=== PATIENT | male | born 1965 | race Caucasian/White ===

== ENCOUNTER 2016-10-27 16:36 | Emergency (ER) | payer OTHER ==
--- NOTE | 2016-10-27 17:08 | ED CLINICAL REPORT ---
Clinical Report - Physicians/Mid Levels [facility] [address] [place] [address] 10/27/2016 16:38 Patient: SARAHI SÁNCHEZ SR Time Seen: 16:53. Arrived- By private vehicle. Historian- patient. HISTORY OF PRESENT ILLNESS Chief Complaint: SKIN RASH. This started about 5 weeks ago and is still present. It was gradual in onset and has been waxing/waning. It is described as itchy, mildly painful and burning. It has been located on the right hand and left hand. A possible cause has been identified (Pt thinks the dry, cracked skin could be due to his use of Round Up herbicide - despite using this multiple times in the past without difficulty). Similar symptoms previously: None. Recent medical care: Not recently seen/assessed. REVIEW OF SYSTEMS No fever, chills, sore throat, cough or difficulty breathing. No headache, chest pain, abdominal pain, nausea or difficulty with urination. No vomiting. PAST HISTORY Negative. See nurses notes. Problems: no known problems. Medications: Ibuprofen Oral. Allergies: "Pain killers". SOCIAL HISTORY Never smoker. Occasional alcohol use. No drug use. Residence: [place] Is a local resident. ADDITIONAL NOTES The nursing notes have been reviewed. PHYSICAL EXAM Vital Signs: 10/27/2016 16:55 BP: 131/87. HR: 80. RR: 16. O2 saturation: 96%. Temp: 98.2 F. Pain level now: 1/10. Appearance: Alert. Oriented X3. Anxious. Patient in mild distress. Eyes: Conjunctivae and eyelids normal. ENT: No nasal discharge. Neck: Neck supple. CVS: Normal heart rate and rhythm. Heart sounds normal. Abdomen: Nontender. No organomegaly. Skin: Skin rash on the right hand, right palm of the hand, left hand and left palm of the hand- dry, cracking skin; no erythema or warmth or lymphangitis. No macular, papular, petechial, vesicular or raised skin rash. No urticarial or ulcerative skin rash. No abscess. Extremities: (dry, cracking skin both hands). Neuro: Oriented X 3. No motor deficit. No sensory deficit. LABS, X-RAYS, AND EKG Pulse Oximetry: 10/27/2016 17:38 O2 saturation: 98%. (FIO2 - room air). Interpretation: normal. PROGRESS AND PROCEDURES Course of Care: Most c/w dyshidrotic eczema. Doubt any connection to Round Up. No cellulitis now. Symptoms for 5 weeks. No PCP. He is encouraged to establish primary care for ongoing monitoring - given the phone number for [facility]. Patient/family counseled. Disposition: Discharged. Condition: stable and improved. CLINICAL IMPRESSION Intrinsic eczema (bilateral hands). Possible psoriasis with arthritis of the fingers. Doubt allergic and irritative contact dermatitis. Clinical picture does not suggest urticaria, drug rash, erythema multiforme or cellulitis. INSTRUCTIONS Drink plenty of fluids. (You may wear a glove at night after you apply the steroid cream - this serves as an occlusive dressing and helps the medicine penetrate deeper.). Warnings: Further evaluation is necessary in order to conduct further tests. It is very important to follow up with a physician. GENERAL WARNINGS: Return or contact your physician immediately if your condition worsens or changes unexpectedly, if not improving as expected, or if other problems arise. Your Current Medications: CONTINUE TAKING THE FOLLOWING MEDICATIONS: Ibuprofen Oral. Prescription Medications: Triamcinolone 0.1% Cream: Apply to affected areas 2 times daily as needed. Dispense fifteen (15) gm. No refills. Follow-up: Follow up with your doctor You may call the [facility] in [facility] or the [facility] in [facility] in about three days. Follow up with a neck fitter- as recommended by your primary care physician. Follow-up with: Matteo Fabian MD, Family Practice, , [facility], [address] [place] [address] Follow up in about five days. (Electronically signed by Paul Manriquez DO 10/27/2016 18:00)
--- NOTE | 2016-10-27 17:08 | ED NURSING NOTES ---
Clinical Report - Nurses [facility] [address] [place] [address] 10/27/2016 16:38 Patient: SARAHI SÁNCHEZ SR TRIAGE Triage time 16:55. Acuity: LEVEL 4. Chief Complaint: SKIN RASH and SKIN LESION. SEPSIS SCREEN: Sepsis Screen. Negative (no infection suspected/documented). --17:08 Mary Zepeda R.N. 16:55 10/27/16. BP: 131/87. HR: 80. RR: 16. O2 saturation: 96%. Temp: 98.2 F. Pain level now: 04/27. --17:08 Mary Zepeda R.N. Weight: 96.1 kg stated. Height/Length: 64 inches Per Patient. BMI: 36.4. --17:06 Mary Zepeda R.N. Medications Ibuprofen Oral. --17:06 Mary Zepeda R.N. Allergies "Pain killers". --17:07 Mary Zepeda R.N. History Arrived by private vehicle. Historian: patient. Primary physician (no pcp). Reported as located on the right hand and left hand. Onset. (about 5 weeks ago). It is described as itchy, burning and painful. ( Used RoundUp about 5 weeks ago that leaked onto his hands). Treatment PIECE HAND: (Friend told him to soak hands in apple cider vinegar so he did, also applied aloe today). SOCIAL HX: Never smoker. Alcohol use; consumes beer occasionally. No drug use. No infectious disease exposure. SELF HARM ASSESSMENT: A self harm assessment was performed. The patient answered "no" to the question "Have you noticed less interest or pleasure in doing things?". ABUSE ASSESSMENT: Abuse assessment: ("Yes") The patient was asked "Do you feel safe in your home?". --17:08 Mary Zepeda R.N. PROBLEMS: no known problems. 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 --17:08 Mary Zepeda R.N. Interventions ID band on patient. --17:08 Mary Zepeda R.N. PHYSICAL ASSESSMENT Ambulatory to room. GENERAL / NEURO / PSYCH: Alert. The patient does not appear to be in acute distress. Oriented X 4. RESPIRATORY: Respirations not labored. SKIN: Skin is warm and dry. Skin lesion on the right hand and left hand. Skin tenderness present. --17:09 Mary Zepeda R.N. NURSING PROGRESS NOTES Patient identifiers checked. Call light placed in reach. Side rails up. Bed placed in lowest position. Brakes of bed on. --17:09 Mary Zepeda R.N. ( pt soaking hands in soap/water and cleaning them). --17:20 Mary Zepeda R.N. ( Abx ointment applied to cracks on bilat hands and gloves applied over both.). --17:30 Mary Zepeda R.N. DISPOSITION / DISCHARGE Departure time: 17:43. Condition at departure: improved. No learning barriers present. Discharge instructions provided and reviewed with the patient. Reviewed medication(s) side effects, precautions, dosing and course information. Prescription(s) given to the patient. Reviewed referrals for followup ([facility] [phone]). Patient verbalized understanding. The patient was discharged by the physician. He was discharged home. He left the Emergency Department ambulatory and via private vehicle. Patient driving. --17:43 Mary Zepeda R.N. 17:38 10/27/16. BP: 128/86. HR: 80. RR: 16. O2 saturation: 98%. Temp: 98.2 F. Pain level now: 0/10. --17:43 Mary Zepeda R.N. Locked/Released at 10/27/2016 17:52 by Mary Zepeda R.N.
--- NOTE | 2016-10-27 17:08 | ED NURSING NOTES ---
Clinical Report - Nurses [facility] [address] [place] [address] 10/27/2016 16:38 Patient: SARAHI SÁNCHEZ SR TRIAGE Triage time 16:55. Acuity: LEVEL 4. Chief Complaint: SKIN RASH and SKIN LESION. SEPSIS SCREEN: Sepsis Screen. Negative (no infection suspected/documented). --17:08 Mary Zepeda R.N. 16:55 10/27/16. BP: 131/87. HR: 80. RR: 16. O2 saturation: 96%. Temp: 98.2 F. Pain level now: 04/27. --17:08 Mary Zepeda R.N. Weight: 96.1 kg stated. Height/Length: 64 inches Per Patient. BMI: 36.4. --17:06 Mary Zepeda R.N. Medications Ibuprofen Oral. --17:06 Mary Zepeda R.N. Allergies "Pain killers". --17:07 Mary Zepeda R.N. History Arrived by private vehicle. Historian: patient. Primary physician (no pcp). Reported as located on the right hand and left hand. Onset. (about 5 weeks ago). It is described as itchy, burning and painful. ( Used RoundUp about 5 weeks ago that leaked onto his hands). Treatment ELECTRIC ORGAN CHECKER: (Friend told him to soak hands in apple cider vinegar so he did, also applied aloe today). SOCIAL HX: Never smoker. Alcohol use; consumes beer occasionally. No drug use. No infectious disease exposure. SELF HARM ASSESSMENT: A self harm assessment was performed. The patient answered "no" to the question "Have you noticed less interest or pleasure in doing things?". ABUSE ASSESSMENT: Abuse assessment: ("Yes") The patient was asked "Do you feel safe in your home?". --17:08 Mary Zepeda R.N. PROBLEMS: no known problems. 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 --17:08 Mary Zepeda R.N. Interventions ID band on patient. --17:08 Mary Zepeda R.N. PHYSICAL ASSESSMENT Ambulatory to room. GENERAL / NEURO / PSYCH: Alert. The patient does not appear to be in acute distress. Oriented X 4. RESPIRATORY: Respirations not labored. SKIN: Skin is warm and dry. Skin lesion on the right hand and left hand. Skin tenderness present. --17:09 Mary Zepeda R.N. NURSING PROGRESS NOTES Patient identifiers checked. Call light placed in reach. Side rails up. Bed placed in lowest position. Brakes of bed on. --17:09 Mary Zepeda R.N. ( pt soaking hands in soap/water and cleaning them). --17:20 Mary Zepeda R.N. ( Abx ointment applied to cracks on bilat hands and gloves applied over both.). --17:30 Mary Zepeda R.N. DISPOSITION / DISCHARGE Departure time: 17:43. Condition at departure: improved. No learning barriers present. Discharge instructions provided and reviewed with the patient. Reviewed medication(s) side effects, precautions, dosing and course information. Prescription(s) given to the patient. Reviewed referrals for followup ([facility] [phone]). Patient verbalized understanding. The patient was discharged by the physician. He was discharged home. He left the Emergency Department ambulatory and via private vehicle. Patient driving. --17:43 Mary Zepeda R.N. 17:38 10/27/16. BP: 128/86. HR: 80. RR: 16. O2 saturation: 98%. Temp: 98.2 F. Pain level now: 0/10. --17:43 Mary Zepeda R.N. Locked/Released at 10/27/2016 17:52 by Mary Zepeda R.N.
--- NOTE | 2016-10-27 17:08 | ED ORDER SUMMARY ---
..... Patient: SARAHI SÁNCHEZ SR OrderSheet [facility] VisitID: [id number] [address] [place] [address] 51y, M Registration Date/Time: 10/27/2016 ORDER SHEET Weight: 96.1 kg (stated) Allergies: "Pain killers" GENERAL ORDERS: Dress Wounds (please clean and dress hands with bacitracin and appy a glove to both hands) (17:05 10/27/2016 Mindy AUSTIN) (17:10 John Madera) MEDICATION ORDERS: IV FLUIDS: ORDER SHEET NOTES: [Electronically signed by Mary Zepeda R.N. (17:52 10/27/2016)] [Electronically signed by Paul Manriquez DO (18:00 10/27/2016)] [Electronically locked/signed by Mary Zepeda R.N. (17:52 10/27/2016)]
--- NOTE | 2016-10-27 17:08 | ED CLINICAL REPORT ---
Clinical Report - Physicians/Mid Levels [facility] [address] [place] [address] 10/27/2016 16:38 Patient: SARAHI SÁNCHEZ SR Time Seen: 16:53. Arrived- By private vehicle. Historian- patient. HISTORY OF PRESENT ILLNESS Chief Complaint: SKIN RASH. This started about 5 weeks ago and is still present. It was gradual in onset and has been waxing/waning. It is described as itchy, mildly painful and burning. It has been located on the right hand and left hand. A possible cause has been identified (Pt thinks the dry, cracked skin could be due to his use of Round Up herbicide - despite using this multiple times in the past without difficulty). Similar symptoms previously: None. Recent medical care: Not recently seen/assessed. REVIEW OF SYSTEMS No fever, chills, sore throat, cough or difficulty breathing. No headache, chest pain, abdominal pain, nausea or difficulty with urination. No vomiting. PAST HISTORY Negative. See nurses notes. Problems: no known problems. Medications: Ibuprofen Oral. Allergies: "Pain killers". SOCIAL HISTORY Never smoker. Occasional alcohol use. No drug use. Residence: [place] Is a local resident. ADDITIONAL NOTES The nursing notes have been reviewed. PHYSICAL EXAM Vital Signs: 10/27/2016 16:55 BP: 131/87. HR: 80. RR: 16. O2 saturation: 96%. Temp: 98.2 F. Pain level now: 1/10. Appearance: Alert. Oriented X3. Anxious. Patient in mild distress. Eyes: Conjunctivae and eyelids normal. ENT: No nasal discharge. Neck: Neck supple. CVS: Normal heart rate and rhythm. Heart sounds normal. Abdomen: Nontender. No organomegaly. Skin: Skin rash on the right hand, right palm of the hand, left hand and left palm of the hand- dry, cracking skin; no erythema or warmth or lymphangitis. No macular, papular, petechial, vesicular or raised skin rash. No urticarial or ulcerative skin rash. No abscess. Extremities: (dry, cracking skin both hands). Neuro: Oriented X 3. No motor deficit. No sensory deficit. LABS, X-RAYS, AND EKG Pulse Oximetry: 10/27/2016 17:38 O2 saturation: 98%. (FIO2 - room air). Interpretation: normal. PROGRESS AND PROCEDURES Course of Care: Most c/w dyshidrotic eczema. Doubt any connection to Round Up. No cellulitis now. Symptoms for 5 weeks. No PCP. He is encouraged to establish primary care for ongoing monitoring - given the phone number for [facility]. Patient/family counseled. Disposition: Discharged. Condition: stable and improved. CLINICAL IMPRESSION Intrinsic eczema (bilateral hands). Possible psoriasis with arthritis of the fingers. Doubt allergic and irritative contact dermatitis. Clinical picture does not suggest urticaria, drug rash, erythema multiforme or cellulitis. INSTRUCTIONS Drink plenty of fluids. (You may wear a glove at night after you apply the steroid cream - this serves as an occlusive dressing and helps the medicine penetrate deeper.). Warnings: Further evaluation is necessary in order to conduct further tests. It is very important to follow up with a physician. GENERAL WARNINGS: Return or contact your physician immediately if your condition worsens or changes unexpectedly, if not improving as expected, or if other problems arise. Your Current Medications: CONTINUE TAKING THE FOLLOWING MEDICATIONS: Ibuprofen Oral. Prescription Medications: Triamcinolone 0.1% Cream: Apply to affected areas 2 times daily as needed. Dispense fifteen (15) gm. No refills. Follow-up: Follow up with your doctor You may call the [facility] in [facility] or the [facility] in [facility] in about three days. Follow up with a finance effectiveness manager- as recommended by your primary care physician. Follow-up with: Matteo Fabian MD, Family Practice, , [facility], [address] [place] [address] Follow up in about five days. (Electronically signed by Paul Manriquez DO 10/27/2016 18:00)
--- NOTE | 2016-10-27 17:08 | ED ORDER SUMMARY ---
..... Patient: SARAHI SÁNCHEZ SR OrderSheet [facility] VisitID: [id number] [address] [place] [address] 51y, M Registration Date/Time: 10/27/2016 ORDER SHEET Weight: 96.1 kg (stated) Allergies: "Pain killers" GENERAL ORDERS: Dress Wounds (please clean and dress hands with bacitracin and appy a glove to both hands) (17:05 10/27/2016 Mindy AUSTIN) (17:10 John Madera) MEDICATION ORDERS: IV FLUIDS: ORDER SHEET NOTES: [Electronically signed by Mary Zepeda R.N. (17:52 10/27/2016)] [Electronically signed by Paul Manriquez DO (18:00 10/27/2016)] [Electronically locked/signed by Mary Zepeda R.N. (17:52 10/27/2016)]
--- NOTE | 2016-10-27 18:00 | ED MAR SUMMARY ---
..... Medication Administration Record [facility] [address] [place], [place] [id number] Patient: SARAHI SÁNCHEZ Visit ID: [id number] 51y, M Weight: 96.1 kg Height/Length: 64 in BMI: 36.4 ALLERGIES: "Pain killers"
--- NOTE | 2016-10-27 18:00 | ED DISCHARGE INSTRUCTIONS ---
Patient: SARAHI SÁNCHEZ SR General Instructions [facility] VisitID: [id number] [address] [place] [address] 51y, M Registration Date/Time: 10/27/2016 Intrinsic eczema (bilateral hands). INSTRUCTIONS Drink plenty of fluids. (You may wear a glove at night after you apply the steroid cream - this serves as an occlusive dressing and helps the medicine penetrate deeper.). Warnings: Further evaluation is necessary in order to conduct further tests. It is very important to follow up with a physician. GENERAL WARNINGS: Return or contact your physician immediately if your condition worsens or changes unexpectedly, if not improving as expected, or if other problems arise. Your Current Medications: CONTINUE TAKING THE FOLLOWING MEDICATIONS: Ibuprofen Oral. Prescription Medications: Triamcinolone 0.1% Cream: Apply to affected areas 2 times daily as needed. Dispense fifteen (15) gm. No refills. Follow-up: Follow up with your doctor You may call the [facility] in [facility] or the [facility] in [facility] in about three days. Follow up with a manager semiconductor- as recommended by your primary care physician. Follow-up with: Matteo Fabian MD, [facility], , [facility], [address] [place] [address] Follow up in about five days. ADDITIONAL INFORMATION Atopic Dermatitis (Eczema) Atopic dermatitis is a dry, itchy red rash that comes and goes. It is not contagious. It is most common in persons with asthma, hay fever, hives, or dry sensitive skin. The rash may be triggered by extreme heat or heavy sweating. Skin irritants may cause the rash to flare up, including wool or silk clothing, grease, oils, some medicines, and harsh soaps and detergents. And emotional stress may also be a trigger. Scratching may break the skin and lead to infection. Treatment is aimed at relieving the itching and local inflammation. Home Care: Keep the areas of rash clean by bathing regularly (at least every other day). Use lukewarm water to bathe. Avoid hot water, which can dry out the skin. Avoid soaps with detergents. Use mild, moisturizing soaps such as Dove or Cetaphil. Apply a moisturizing cream or ointment to damp skin right after bathing. Avoid things that irritate your skin. Wear absorbent, soft fabrics next to the skin rather than rough or scratchy materials. Use mild laundry soap free of scents and perfumes. Rinse all the soap out of the clothes before drying. Treat any skin infection as directed. Oral Benadryl (diphenhydramine) is an antihistamine available at drug and grocery stores. Unless a prescription antihistamine was given, Benadryl may be used to reduce itching if large areas of the skin are involved. Use lower doses during the daytime and higher doses at bedtime since the drug may make you sleepy. (NOTE: Do not use Benadryl if you have glaucoma or if you are a man with trouble urinating due to an enlarged prostate.) Claritin (loratadine) is an antihistamine that causes less drowsiness and is an alternative for daytime use. Follow Up: Make an appointment with your doctor in the next week if there is no improvement with the above measures. Get Prompt Medical Attention if any of the following occur: Increasing area of redness or pain in the skin Yellow crusts or wet drainage from the rash Fever of 100.4F (38C) or higher, or as directed by your healthcare provider Triamcinolone Acetonide, Distilled Water Topical cream What is this medicine? TRIAMCINOLONE (trye am SIN oh lone) is a corticosteroid. It is used on the skin to reduce swelling, redness, itching, and allergic reactions. How should I use this medicine? This medicine is for external use only. Do not take by mouth. Follow the directions on the prescription label. Wash your hands before and after use. Apply a thin film of medicine to the affected area. Do not cover with a bandage or dressing unless your doctor or health livestock caretaker tells you to. Do not use on healthy skin or over large areas of skin. Do not get this medicine in your eyes. If you do, rinse out with plenty of cool tap water. It is important not to use more medicine than prescribed. Do not use your medicine more often than directed. Talk to your bridge/structure inspection team leader regarding the use of this medicine in children. Special care may be needed. Elderly patients are more likely to have damaged skin through aging, and this may increase side effects. This medicine should only be used for brief periods and infrequently in older patients. What side effects may I notice from receiving this medicine? Side effects that you should report to your doctor or health livestock caretaker as soon as possible: burning or itching of the skin dark red spots on the skin infection painful, red, pus filled blisters in hair follicles thinning of the skin, sunburn more likely especially on the face Side effects that usually do not require medical attention (report to your doctor or health livestock caretaker if they continue or are bothersome): dry skin, irritation unusual increased growth of hair on the face or body What may interact with this medicine? Interactions are not expected. What if I miss a dose? If you miss a dose, use it as soon as you can. If it is almost time for your next dose, use only that dose. Do not use double or extra doses. Where should I keep my medicine? Keep out of the reach of children. Store at room temperature between 15 and 30 degrees C (59 and 86 degrees F). Do not freeze. Throw away any unused medicine after the expiration date. What should I tell my health care provider before I take this medicine? They need to know if you have any of these conditions: diabetes infection, like tuberculosis, herpes, or fungal infection large areas of burned or damaged skin skin wasting or thinning an unusual or allergic reaction to triamcinolone, corticosteroids, other medicines, foods, dyes, or preservatives or trying to get breast-feeding What should I watch for while using this medicine? Tell your doctor or health livestock caretaker if your symptoms do not start to get better within one week. Do not use for more than 14 days. Do not use on healthy skin or over large areas of skin. Tell your doctor or health livestock caretaker if you are exposed to anyone with measles or chickenpox, or if you develop sores or blisters that do not heal properly. Do not use an airtight bandage to cover the affected area unless your doctor or health livestock caretaker tells you to. If you are to cover the area, follow the instructions carefully. Covering the area where the medicine is applied can increase the amount that passes through the skin and increases the risk of side effects. If treating the diaper area of a child, avoid covering the treated area with tight-fitting diapers or plastic pants. This may increase the amount of medicine that passes through the skin and increase the risk of serious side effects. You have been given the following additional information: Atopic Dermatitis (Eczema) Triamcinolone Acetonide, Distilled Water Topical cream (Electronically signed by Paul Manriquez DO 10/27/2016 18:00)
--- NOTE | 2016-10-27 18:00 | ED DISCHARGE INSTRUCTIONS ---
Patient: SARAHI SÁNCHEZ SR General Instructions [facility] VisitID: [id number] [address] [place] [address] 51y, M Registration Date/Time: 10/27/2016 Intrinsic eczema (bilateral hands). INSTRUCTIONS Drink plenty of fluids. (You may wear a glove at night after you apply the steroid cream - this serves as an occlusive dressing and helps the medicine penetrate deeper.). Warnings: Further evaluation is necessary in order to conduct further tests. It is very important to follow up with a physician. GENERAL WARNINGS: Return or contact your physician immediately if your condition worsens or changes unexpectedly, if not improving as expected, or if other problems arise. Your Current Medications: CONTINUE TAKING THE FOLLOWING MEDICATIONS: Ibuprofen Oral. Prescription Medications: Triamcinolone 0.1% Cream: Apply to affected areas 2 times daily as needed. Dispense fifteen (15) gm. No refills. Follow-up: Follow up with your doctor You may call the [facility] in [place] [facility] or the [facility] [place] in [place] [facility] in about three days. Follow up with a district leader- as recommended by your primary care physician. Follow-up with: Matteo Fabian MD, [facility], , [facility], [address] [place] [address] Follow up in about five days. ADDITIONAL INFORMATION Atopic Dermatitis (Eczema) Atopic dermatitis is a dry, itchy red rash that comes and goes. It is not contagious. It is most common in persons with asthma, hay fever, hives, or dry sensitive skin. The rash may be triggered by extreme heat or heavy sweating. Skin irritants may cause the rash to flare up, including wool or silk clothing, grease, oils, some medicines, and harsh soaps and detergents. And emotional stress may also be a trigger. Scratching may break the skin and lead to infection. Treatment is aimed at relieving the itching and local inflammation. Home Care: Keep the areas of rash clean by bathing regularly (at least every other day). Use lukewarm water to bathe. Avoid hot water, which can dry out the skin. Avoid soaps with detergents. Use mild, moisturizing soaps such as Dove or Cetaphil. Apply a moisturizing cream or ointment to damp skin right after bathing. Avoid things that irritate your skin. Wear absorbent, soft fabrics next to the skin rather than rough or scratchy materials. Use mild laundry soap free of scents and perfumes. Rinse all the soap out of the clothes before drying. Treat any skin infection as directed. Oral Benadryl (diphenhydramine) is an antihistamine available at drug and grocery stores. Unless a prescription antihistamine was given, Benadryl may be used to reduce itching if large areas of the skin are involved. Use lower doses during the daytime and higher doses at bedtime since the drug may make you sleepy. (NOTE: Do not use Benadryl if you have glaucoma or if you are a man with trouble urinating due to an enlarged prostate.) Claritin (loratadine) is an antihistamine that causes less drowsiness and is an alternative for daytime use. Follow Up: Make an appointment with your doctor in the next week if there is no improvement with the above measures. Get Prompt Medical Attention if any of the following occur: Increasing area of redness or pain in the skin Yellow crusts or wet drainage from the rash Fever of 100.4F (38C) or higher, or as directed by your healthcare provider Triamcinolone Acetonide, Distilled Water Topical cream What is this medicine? TRIAMCINOLONE (trye am SIN [place] lone) is a corticosteroid. It is used on the skin to reduce swelling, redness, itching, and allergic reactions. How should I use this medicine? This medicine is for external use only. Do not take by mouth. Follow the directions on the prescription label. Wash your hands before and after use. Apply a thin film of medicine to the affected area. Do not cover with a bandage or dressing unless your doctor or health health care marketing specialist tells you to. Do not use on healthy skin or over large areas of skin. Do not get this medicine in your eyes. If you do, rinse out with plenty of cool tap water. It is important not to use more medicine than prescribed. Do not use your medicine more often than directed. Talk to your hat lining blocker regarding the use of this medicine in children. Special care may be needed. Elderly patients are more likely to have damaged skin through aging, and this may increase side effects. This medicine should only be used for brief periods and infrequently in older patients. What side effects may I notice from receiving this medicine? Side effects that you should report to your doctor or health health care marketing specialist as soon as possible: burning or itching of the skin dark red spots on the skin infection painful, red, pus filled blisters in hair follicles thinning of the skin, sunburn more likely especially on the face Side effects that usually do not require medical attention (report to your doctor or health health care marketing specialist if they continue or are bothersome): dry skin, irritation unusual increased growth of hair on the face or body What may interact with this medicine? Interactions are not expected. What if I miss a dose? If you miss a dose, use it as soon as you can. If it is almost time for your next dose, use only that dose. Do not use double or extra doses. Where should I keep my medicine? Keep out of the reach of children. Store at room temperature between 15 and 30 degrees C (59 and 86 degrees F). Do not freeze. Throw away any unused medicine after the expiration date. What should I tell my health care provider before I take this medicine? They need to know if you have any of these conditions: diabetes infection, like tuberculosis, herpes, or fungal infection large areas of burned or damaged skin skin wasting or thinning an unusual or allergic reaction to triamcinolone, corticosteroids, other medicines, foods, dyes, or preservatives or trying to get breast-feeding What should I watch for while using this medicine? Tell your doctor or health health care marketing specialist if your symptoms do not start to get better within one week. Do not use for more than 14 days. Do not use on healthy skin or over large areas of skin. Tell your doctor or health health care marketing specialist if you are exposed to anyone with measles or chickenpox, or if you develop sores or blisters that do not heal properly. Do not use an airtight bandage to cover the affected area unless your doctor or health health care marketing specialist tells you to. If you are to cover the area, follow the instructions carefully. Covering the area where the medicine is applied can increase the amount that passes through the skin and increases the risk of side effects. If treating the diaper area of a child, avoid covering the treated area with tight-fitting diapers or plastic pants. This may increase the amount of medicine that passes through the skin and increase the risk of serious side effects. You have been given the following additional information: Atopic Dermatitis (Eczema) Triamcinolone Acetonide, Distilled Water Topical cream (Electronically signed by Paul Manriquez DO 10/27/2016 18:00)
--- NOTE | 2016-10-27 18:00 | ED MAR SUMMARY ---
..... Medication Administration Record [facility] [address] [place], [place] [id number] Patient: SARAHI SÁNCHEZ Visit ID: [id number] 51y, M Weight: 96.1 kg Height/Length: 64 in BMI: 36.4 ALLERGIES: "Pain killers"
--- NOTE | 2016-10-27 18:00 | ED MED RECONCILIATION SUMMARY ---
Patient: SARAHI SÁNCHEZ SR Medication Reconciliation Report [facility] VisitID: [id number] [address] [place] [address] 51y, M Registration Date/Time: 10/27/2016 Weight: 96.1 kg Height/Length: 64 in. BMI: 36.4 ALLERGIES: "Pain killers" The patient's Home Medications are listed below: CONTINUE TAKING THE FOLLOWING MEDICATIONS: Ibuprofen Oral The source(s) of the original Home Medication information: Not obtained. The following Medications were given to the patient in the Emergency Department: None. The following Medications were prescribed to the patient: Triamcinolone 0.1% Cream: Apply to affected areas 2 times daily as needed. Dispense fifteen (15) gm. No refills. -- Paul Manriquez, DO
--- NOTE | 2016-10-27 18:00 | ED MED RECONCILIATION SUMMARY ---
Patient: SARAHI SÁNCHEZ SR Medication Reconciliation Report [facility] VisitID: [id number] [address] [place] [address] 51y, M Registration Date/Time: 10/27/2016 Weight: 96.1 kg Height/Length: 64 in. BMI: 36.4 ALLERGIES: "Pain killers" The patient's Home Medications are listed below: CONTINUE TAKING THE FOLLOWING MEDICATIONS: Ibuprofen Oral The source(s) of the original Home Medication information: Not obtained. The following Medications were given to the patient in the Emergency Department: None. The following Medications were prescribed to the patient: Triamcinolone 0.1% Cream: Apply to affected areas 2 times daily as needed. Dispense fifteen (15) gm. No refills. -- Paul Manriquez, DO
== END 2016-10-27 17:24 | disposition home or self-care (01) ==
LOC: ED SRH 16:36
DX: L20.84 Intrinsic (allergic) eczema (principal); Z88.5 Allergy status to narcotic agent; Z79.1 Long term (current) use of non-steroidal anti-inflammatories (NSAID)